=== PATIENT | male | born 1990 | race Caucasian/White ===

== ENCOUNTER 2017-06-23 01:12 | Emergency (ER) | payer BC ==
[2017-06-23] MEDS ORDERED: predniSONE 20 MG TAB ONE (02:22)
[2017-06-23] MEDS ORDERED: Ketorolac Tromethamine 60 MG/2 ML VIAL ONE (02:22)
[2017-06-23] MEDS ORDERED: Acetaminophen 500 MG TAB ONE (03:32)
[2017-06-23] MEDS ORDERED: Methocarbamol 500 MG TAB PO SCH (03:45)
[2017-06-23] MEDS ORDERED: Doxycycline 100 MG CAP PO SCH (03:45)
--- NOTE | 2017-06-23 07:55 | RAD ---
PORTABLE CHEST 1 VIEW: Date: 06/23/17 Time: 0138 hours HISTORY: Wheezing, shortness of breath, congestion, and chest pain. FINDINGS: The heart size is normal. The lungs are well expanded without focal areas of consolidation, pneumotho rax, or pleural effusions. IMPRESSION: No radiographic evidence of acute cardiopulmonary process. POS: [facility]
--- NOTE | 2017-06-25 13:48 | EKG ---
Test Reason : TACHYCARDIA Blood Pressure : / mmHG Vent. Rate : 118 BPM Atrial Rate : 118 BPM P-R Int : 132 ms QRS Dur : 092 ms QT Int : 318 ms P-R-T Axes : 057 089 037 degrees QTc Int : 445 ms Sinus tachycardia Possible Left atrial enlargement Borderline ECG Confirmed by ROBERTO LYNN ([id number]), editorial cartoonist MATT ARMSTRONG ([id number]) on 06/25/2017 1:47:49 PM Referred By: LEAH Confirmed By:ROBERTO LYNN
== END 2017-06-23 04:20 | disposition home or self-care (01) ==
LOC: ERS 01:12
DX: J45.901 Unspecified asthma with (acute) exacerbation (principal); F17.210 Nicotine dependence, cigarettes, uncomplicated
CPT/HCPCS: 71045; 93005; 94640; 96372; J1885; J7506; J7620